=== PATIENT | female | born 1970 | race Asian ===

== ENCOUNTER 2019-12-06 20:32 | Emergency (ER) | payer BC, OTHER ==
[~2019-12-06] VITALS: Ht 162.6 cm; Wt 54.5 kg
[~2019-12-06 20:32] MED LIST: LEVO125 PO; RITU1010I IV
[2019-12-06] MEDS ORDERED: HYDR200T4 PO (20:42)
[2019-12-06] MEDS ORDERED: MELO-107 PO (20:42)
[2019-12-06 21:25] LABS: APPEARANCE,URINE CLEAR (CLEAR); BILIRUBIN,URINE NEGATIVE (NEGATIVE); GLUCOSE, URINE (UA) NEGATIVE (NEGATIVE); KETONES,URINE NEGATIVE (NEGATIVE); LEUKOCYTE ESTERASE ,URINE SMALL (NEGATIVE); NITRATE,URINE NEGATIVE (NEGATIVE); OCCULT BLOOD,URINE NEGATIVE (NEGATIVE); PROTEIN,URINE NEGATIVE (NEGATIVE); UROBILINOGEN,URINE 0.2 mg/dL (<=1.0)
[2019-12-06 21:38] LABS: RBC,URINE None Seen /HPF (0-2)
[2019-12-06 21:39] LABS: BACTERIA,URINE Rare /HPF (None Seen); SQUAMOUS EPITHELIAL CELL,UR Moderate /LPF (None Seen); WBC,URINE 0-2 /HPF (0-5)
[2019-12-06 22:30] VITALS: BP 119/67
[2019-12-06 22:35] LABS: GLUCOSE,POINT OF CARE 106 MG/DL (70-110)
== END 2019-12-06 22:57 | disposition home or self-care (01) ==
LOC: EMS 20:32
DX: R35.0 Frequency of micturition (principal); M79.601 Pain in right arm; M79.602 Pain in left arm; G89.29 Other chronic pain; Z88.1 Allergy status to other antibiotic agents; Z88.8 Allergy status to other drugs, medicaments and biological substances